=== PATIENT | female | born 1975 | race African-American/Black ===

== ENCOUNTER → 2018-09-20 | Outpatient (CLI) | payer OTHER ==
[~2018-09-20] MED LIST: ADVAIR HFA 230M12 GM INH; ALBUTEROL2.5 MG/31 INH; DUONEB 2.5-0.5 M3 ML INH; PREDNISONE 20 M20 MG PO; SINGULAIR 10 MG10 M1 PO; VENTOLIN HFA 1818 GM INH
== END ==
LOC: ULTRA 10:55
DX: N94.6 Dysmenorrhea, unspecified (principal)

== ENCOUNTER 2020-10-12 19:46 | Emergency (ER) | payer OTHER ==
[~2020-10-12] VITALS: Ht 167.6 cm; Wt 81.7 kg
[2020-10-12 20:26] LABS: HEMATOCRIT 36.4 % (37.0-47.0); HEMOGLOBIN 12.3 gm/dL (12.0-15.0); MCH 31.7 pg (26.0-34.0); MCHC 33.8 g/dL (28.0-37.0); MCV 93.7 fL (80.0-100.0); PLATELET COUNT 328 thou/uL (150-400); RBC 3.88 mil/uL (4.20-5.00); RDW 14.5 % (10.5-14.5); WBC 8.6 thou/uL (4.0-11.0)
[2020-10-12 20:45] LABS: ABSOLUTE NEUTROPHILS 2.8 thou/uL (1.4-8.2)
[2020-10-12 20:47] LABS: ATYPICAL LYMPHS 3 %
[2020-10-12 21:19] LABS: ANION GAP 13 mmol/L (7-16); BUN 14 mg/dL (7-18); CALCIUM 8.9 mg/dL (8.5-10.1); CHLORIDE 103 mmol/L (98-107); CO2 20 mmol/L (21-32); CREATININE 0.7 mg/dL (0.6-1.0); GLUCOSE 100 mg/dL (74-106); POTASSIUM 3.3 mmol/L (3.5-5.1); SODIUM 136 mmol/L (136-145)
[2020-10-12 21:22] LABS: BE(vivo) -3.1 mmol/L (-2 to +3); HCO3 20.9 mmol/L (22.0-26.0); PCO2 34.1 mmHg (35.0-45.0); pH 7.405 (7.360-7.450); sO2 95.6 % (92.0-98.0)
[2020-10-12 21:30] LABS: URINE BILIRUBIN NEGATIVE (Negative); URINE BLOOD 1+ (Negative); URINE CLARITY CLEAR; URINE COLOR YELLOW; URINE GLUCOSE-RANDOM* NEGATIVE (Negative); URINE KETONES NEGATIVE (Negative); URINE LEUKOCYTES-REFLEX NEGATIVE (Negative); URINE NITRITE-REFLEX NEGATIVE (Negative); URINE PROTEIN (DIPSTICK) TRACE (Negative); URINE SPECIFIC GRAVITY 1.025 (1.005-1.035); URINE UROBILINOGEN 0.2 E.U./dl (0.2-1.0)
[2020-10-12 21:30] LABS: ALBUMIN 3.6 g/dL (3.4-5.0); DIRECT BILIRUBIN < 0.1 mg/dL (<0.1-0.2); SGOT 24 U/L (15-37); SGPT 26 U/L (14-59); TOTAL BILIRUBIN 0.2 mg/dL (0.2-1.0); TOTAL PROTEIN 7.6 g/dL (6.4-8.2); TROPONIN-I <0.06 ng/mL (<0.06)
[2020-10-12 21:38] LABS: SQUAMOUS >10 Many /LPF (0-3)
[2020-10-12 21:39] LABS: BACTERIA-REFLEX None Seen /HPF (None Seen); CRYSTALS None Seen /LPF (None Seen); URINE RBC 0-2 Rare /HPF (0-2); URINE WBC-REFLEX 0-5 Rare /HPF (0-5)
[2020-10-12] MEDS ORDERED: PREDNISONE 20 M20 MG PO (21:58)
[2020-10-12] MEDS ORDERED: PROAIR HFA8.5 GM INH (21:58)
[2020-10-12 22:09] VITALS: BP 114/78
--- NOTE | 2020-10-13 07:16 | EKG ---
[address] [address] ELECTROCARDIOGRAM REPORT Name: MONISHA LANGE Room #: [facility]P [facility]ES[facility]al[facility] [id number] Admission: 10/12/20 Attend Phys: Discharge: 10/12/20 Date of : 77 Report #: [id number] [facility] ED Test Date: 2020-10-12 Test Time: 20:36:54 Pat Name: MONISHA LANGE Department: Room: Gender: F Summer Associate: JORJE : 1975 Requested By: Adolfo Fernando Order Number: [id number] MD: Lopez Hope Measurements Intervals [place]intosh Rate: 99 P: 80 WI: 147 QRS: 51 QRSD: 86 T: 42 QT: 352 QTc: 452 Interpretive Statements Sinus rhythm No previous ECG available for comparison Electronically Signed On 10-13-2020 7:16:50 [facility]CTOR [facility]URSE [facility]ESTHESIA by Lopez Hope [email or web address] <ELECTRONICALLY SIGNED> By: Lopez Hope MD, [facility] 10/13/20 0716 35 35 Lopez Hope MD, FACC /EPI
== END 2020-10-12 22:14 | disposition home or self-care (01) ==
LOC: ER 19:46
PROVIDERS: Emergency Medicine
DX: J45.901 Unspecified asthma with (acute) exacerbation (principal); F17.210 Nicotine dependence, cigarettes, uncomplicated; Z79.899 Other long term (current) drug therapy

== ENCOUNTER 2021-05-06 21:45 | Emergency (ER) | payer OTHER ==
[~2021-05-06] VITALS: Ht 162.6 cm; Wt 83.9 kg
[~2021-05-06 21:45] MED LIST changes: +PROAIR HFA8.5 GM INH
[2021-05-06] MEDS ORDERED: ADVAIR 500-501 EACH INH (22:22)
[2021-05-06] MEDS ORDERED: LEXAPRO 10 MG T10 M2 PO (22:22)
[2021-05-06] MEDS ORDERED: PROAIR HFA8.5 GM INH (22:22)
[2021-05-07] MEDS ORDERED: ALBUTEROL2.5 MG/31 INH (00:08)
[2021-05-07] MEDS ORDERED: PREDNISONE 20 M20 MG PO (00:08)
[2021-05-07 00:43] VITALS: BP 131/90
== END 2021-05-07 00:44 | disposition home or self-care (01) ==
LOC: ER 21:45
DX: J45.901 Unspecified asthma with (acute) exacerbation (principal); F17.210 Nicotine dependence, cigarettes, uncomplicated; Z98.890 Other specified postprocedural states; Z79.51 Long term (current) use of inhaled steroids; Z79.899 Other long term (current) drug therapy

== ENCOUNTER 2021-06-21 16:03 | Emergency (ER) | payer OTHER ==
[~2021-06-21] VITALS: Ht 162.6 cm; Wt 81.7 kg
[~2021-06-21 16:03] MED LIST changes: +ADVAIR 500-501 EACH INH; +LEXAPRO 10 MG T10 M2 PO
[2021-06-21] MEDS ORDERED: HYDROXYZINE HCL10 M2 PO (16:24)
[2021-06-21 17:20] VITALS: BP 101/78
== END 2021-06-21 17:20 | disposition home or self-care (01) ==
LOC: ER 16:03
DX: S61.411A Laceration without foreign body of right hand, initial encounter (principal); J45.909 Unspecified asthma, uncomplicated; F17.210 Nicotine dependence, cigarettes, uncomplicated; Z79.899 Other long term (current) drug therapy; W26.0XXA Contact with knife, initial encounter; Y93.89 Activity, other specified; Y92.89 Other specified places as the place of occurrence of the external cause; Y99.8 Other external cause status